=== PATIENT | female | born 2005 | race Caucasian/White ===

== ENCOUNTER → 2024-06-02 08:16 | Outpatient (REF) | payer OTHER, SELFPAY | LOC: PAVMRI 08:16 | PROVIDERS: ATTENDING PHYSICIAN Internal Medicine Rheumatology | DX: M08.80 Other juvenile arthritis, unspecified site (principal) | CPT/HCPCS: 73721 ==

== ENCOUNTER → 2025-02-09 09:16 | Outpatient (REF) | payer OTHER, SELFPAY | LOC: RAD 09:16 | PROVIDERS: ATTENDING PHYSICIAN Physician Assistant; FAMILY PHYSICIAN Nurse Practitioner | DX: M25.562 Pain in left knee (principal) | CPT/HCPCS: 73564 ==